=== PATIENT | male | born 1955 | race Caucasian/White ===

== ENCOUNTER 2021-01-01 21:27 | Inpatient (IN) | payer MEDICAID, OTHER ==
[~2021-01-01] VITALS: Ht 177.8 cm; Wt 115.6 kg
--- NOTE | 2021-01-01 21:50 | NUR ---
Pt with periods of decrease RR and o2 sat drop to 87%, pt will wake up with stimuli and sats back up. Remains NSR no ectopy. RR 14. Straight cath via sterile techniqe, urine sent to lab. IV patent. Dr Ford at bedside, will continue to monitor.
--- NOTE | 2021-01-01 21:57 | NUR ---
at bedside, pt shackled and belly chains. Will continue to monitor, pt o2 sats increase with verbal stimulation.
--- NOTE | 2021-01-01 22:03 | NUR ---
Lab here drawing blood. Will continue to monitor pt.
[2021-01-01 22:14] LABS: BASOPHILS % (AUTO) 0 % (0-1); EOSINOPHILS % (AUTO) 0 % (1-7); LYMPHOCYTES % (AUTO) 6 % (22-44); MEAN CORPUSCULAR HEMOGLOBIN 29.8 pg (27.5-34.5); MEAN CORPUSCULAR HGB CONC 33.9 g/dL (33.2-36.2); MEAN PLATELET VOLUME 7.4 fL (7.4-10.4); MONOCYTES % (AUTO) 5 % (2-9); NEUTROPHILS % (AUTO) 88 % (42-75); PLATELET COUNT 238 x10^3/uL (130-400); RED BLOOD COUNT 5.33 x10^6/uL (4.38-5.82); RED CELL DISTRIBUTION WIDTH 12.9 % (9.4-14.8)
[2021-01-01 22:19] LABS: MD NO
[2021-01-01 22:19] LABS: AMPHETAMINE SCREEN, URINE Positive (Negative); BARBITURATE SCREEN, URINE Negative (Negative); BENZODIAZEPINE SCREEN, URINE Negative (Negative); CANNABINOID SCREEN, URINE Positive (Negative); COCAINE SCREEN, URINE Negative (Negative); METHADONE SCREEN, URINE Negative (Negative); OPIATE SCREEN, URINE Negative (Negative)
[2021-01-01 22:25] LABS: ALANINE AMINOTRANSFERASE 31 U/L (12-78); ALBUMIN 3.7 g/dL (3.4-5.0); ANION GAP 7 mmol/L (5-15); CALCIUM 8.6 mg/dL (8.5-10.1); CHLORIDE 107 mmol/L (98-107); CREATININE 0.99 mg/dL (0.7-1.3); SALICYLATE LEVEL 2.3 mg/dL (2.8-20.0)
--- NOTE | 2021-01-01 22:27 | NUR ---
Pt still with episodes of desat and decrease RR, increases with loud stimulation. Pt states he does not remember being at custodial, states he doesn't remember being in ambulance. 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 Informed Dr Ford. Order for Head CT. Will continue to monitor. Pt o2 sat quickly improves with verbal communication for pt to take deep breath.
[2021-01-01 22:29] LABS: ALKALINE PHOSPHATASE 69 U/L (45-117); BILIRUBIN,TOTAL 0.4 mg/dL (0.2-1.0); TOTAL PROTEIN 7.3 g/dL (6.4-8.2); TROPONIN I < 0.015 ng/mL (0.000-0.045)
--- NOTE | 2021-01-01 22:49 | NUR ---
Pt is more talkative now will provide periods of longer conversations. To CT via geraldo with officer and this nurse. Pt now states he takes depression pill and vitamins.
--- NOTE | 2021-01-01 22:59 | NUR ---
Blue top drawn and sent. VSS.
--- NOTE | 2021-01-01 23:22 | NUR ---
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 On monitor, vss, will continue to monitor.
[2021-01-01] MEDS ORDERED: OMNIPAQUE 350 MG/ML, 75ML BOTTLE ONE (23:55)
--- NOTE | 2021-01-01 23:58 | NUR ---
REPORT FROM RONALDO GARCIA. PT TO CT
--- NOTE | 2021-01-02 00:20 | NUR ---
BACK FROM CT. ANSWERS TO VERBAL STIMULI. DOES NOT KNOW WHAT [place] HE IS IN.
[2021-01-02] MEDS ORDERED: SODIUM CHLORIDE 0.9% 1,000 ML IV ONE (01:00)
--- NOTE | 2021-01-02 01:12 | NUR ---
PT AWAKENS EASILY, REPONDS APPROPRIATELY TO [facility], NOW ABLE TO STATE HE IS IN [place]. GUARD AT BEDSIDE
--- NOTE | 2021-01-02 01:35 | NUR ---
ATT #1 FOR REPORT. RN TO CALL BACK
--- NOTE | 2021-01-02 01:44 | NUR ---
REPORT GIVEN TO JIM GARCIA
[2021-01-02 03:03] VITALS: BP 178/90
[2021-01-02] MEDS ORDERED: ACETAMINOPHEN 325 MG TABLET PO PRN (04:00)
[2021-01-02] MEDS ORDERED: LABETALOL 5MG/ML, 20ML IVPush PRN (04:00)
[2021-01-02] MEDS ORDERED: ONDANSETRON 2MG/ML, 2ML IVPush PRN (04:00)
[2021-01-02] MEDS ORDERED: ENALAPRILAT 1.25 MG/ML, 2ML IV PRN ×2 (07:30→14:00)
[2021-01-02] MEDS: THIAMINE 100MG TABLET PO/NG SCH (07:52)
[2021-01-02 08:08] VITALS: BP 189/94
[2021-01-02 08:47] VITALS: BP 174/83
[2021-01-02 13:14] VITALS: BP 175/79
[2021-01-02 14:06] VITALS: BP 172/71
[2021-01-02] MEDS ORDERED: ENALAPRILAT 1.25 MG/ML, 1ML ONE (14:17)
[2021-01-02 19:02] VITALS: BP 168/74
[2021-01-03 02:03] VITALS: BP 138/73
[2021-01-03 04:51] LABS: BASOPHILS % (AUTO) 0 % (0-1); EOSINOPHILS % (AUTO) 1 % (1-7); LYMPHOCYTES % (AUTO) 21 % (22-44); MEAN CORPUSCULAR HEMOGLOBIN 30.3 pg (27.5-34.5); MEAN CORPUSCULAR HGB CONC 34.4 g/dL (33.2-36.2); MEAN PLATELET VOLUME 7.5 fL (7.4-10.4); MONOCYTES % (AUTO) 9 % (2-9); NEUTROPHILS % (AUTO) 69 % (42-75); PLATELET COUNT 214 x10^3/uL (130-400); RED BLOOD COUNT 5.26 x10^6/uL (4.38-5.82)
[2021-01-03 05:04] LABS: CHLORIDE 103 mmol/L (98-107)
[2021-01-03 05:09] LABS: MD NO
[2021-01-03 05:11] LABS: ANION GAP 7 mmol/L (5-15); CALCIUM 8.7 mg/dL (8.5-10.1); CREATININE 0.61 mg/dL (0.7-1.3)
[2021-01-03 07:46] VITALS: BP 150/80
[2021-01-03] MEDS: THIAMINE 100MG TABLET PO/NG SCH (08:40)
== END 2021-01-03 15:29 | disposition home or self-care (01) | DRG 100 ==
LOC: ED 22:38 → INTOOBSV 01-02 01:09 → OBSVTOIN 01-02 01:09 → EDIP 01-02 01:09 → 4WST 01-02 02:08 → DCLOUNGE 01-03 15:10
PROVIDERS: ADMIT Family Medicine; ATTEND Internal Medicine
DX: R56.9 Unspecified convulsions (principal); J96.01 Acute respiratory failure with hypoxia; G93.40 Encephalopathy, unspecified; E87.1 Hypo-osmolality and hyponatremia; I50.30 Unspecified diastolic (congestive) heart failure; E66.9 Obesity, unspecified; F12.10 Cannabis abuse, uncomplicated; F15.10 Other stimulant abuse, uncomplicated; F32.9 Major depressive disorder, single episode, unspecified; I11.0 Hypertensive heart disease with heart failure; Z63.8 Other specified problems related to primary support group; Z68.36 Body mass index [BMI] 36.0-36.9, adult
CPT/HCPCS: 36415; 96374; 99285; C8929; 70450; 71045; 71275; 80048; 80053; 80299; 80307; 80320; 80329; 82607; 84443; 84484; 85025; 85379; 93005; 95819; G0378; Q9957; Q9967; G0480; J7030